=== PATIENT | female | born 2000 | race Caucasian/White ===

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

== ENCOUNTER → 2022-08-13 | Outpatient (REF) | payer OTHER ==
[2022-08-13 17:43] LABS: RHEUMATOID FACTOR QUANT < 3.5 IU/ML (<14)
[2022-08-13 17:46] LABS: FOLATE 16.1 NG/ML (>5.4); VITAMIN B12 LEVEL 193 PG/ML (211-911)
== END ==
LOC: M LAB REF 16:06
PROVIDERS: ATTEND Registered Nurse
DX: R25.1 Tremor, unspecified (principal); E51.9 Thiamine deficiency, unspecified; D51.9 Vitamin B12 deficiency anemia, unspecified; E61.0 Copper deficiency

== ENCOUNTER → 2022-11-19 | Outpatient (REF) | payer OTHER ==
[2022-11-19 14:23] LABS: FOLATE 12.3 NG/ML (>5.4)
[2022-11-19 14:25] LABS: RHEUMATOID FACTOR QUANT < 3.5 IU/ML (<14); VITAMIN B12 LEVEL 690 PG/ML (211-911)
[2022-11-24 15:09] LABS: ANTINUCLEAR ANTIBODIES DIRECT Negative (Negative); CERULOPLASMIN 33.3 mg/dL (19.0-39.0); COPPER PLASMA 198 ug/dL (80-158); VITAMIN B1 LEVEL WHOLE BLOOD 139.9 nmol/L (66.5-200.0); VITAMIN B6,PYRIDOXAL PHOSPHATE 124.1 ug/L (3.4-65.2); VITAMIN E(ALPHA TOCOPHEROL) 13.2 mg/L (5.9-19.4); VITAMIN E(GAMMA TOCOPHEROL) 1.4 mg/L (0.7-4.9)
== END ==
LOC: M LAB REF 12:12
PROVIDERS: ATTEND Internal Medicine
DX: E61.0 Copper deficiency (principal); E53.8 Deficiency of other specified B group vitamins

== ENCOUNTER → 2023-07-06 | Outpatient (CLI) | payer OTHER ==
[2023-07-06 12:16] LABS: FERRITIN 29.5 NG/ML (7.3-270.7); THYROID STIMULATING HORMONE 4.596 uIU/ML (0.48-4.17)
== END ==
LOC: M WUC 08:07
PROVIDERS: ATTEND Internal Medicine
DX: E53.8 Deficiency of other specified B group vitamins (principal); E03.9 Hypothyroidism, unspecified; D50.9 Iron deficiency anemia, unspecified

== ENCOUNTER → 2023-07-16 | Outpatient (CLI) | payer OTHER ==
[2023-07-16 16:04] LABS: FREE T4 0.84 NG/DL (0.83-1.43)
== END ==
LOC: M LAB 15:00
PROVIDERS: ATTEND Internal Medicine
DX: E03.9 Hypothyroidism, unspecified (principal)

== ENCOUNTER → 2024-01-06 | Outpatient (REF) | payer OTHER | LOC: M LAB REF 12:47 | PROVIDERS: ATTEND Internal Medicine | DX: E66.09 Other obesity due to excess calories (principal); F41.9 Anxiety disorder, unspecified ==

== ENCOUNTER → 2024-01-17 | Outpatient (REF) | payer OTHER | LOC: M LAB REF 13:30 | PROVIDERS: ATTEND Internal Medicine | DX: E66.9 Obesity, unspecified (principal); F41.9 Anxiety disorder, unspecified ==

== ENCOUNTER → 2024-08-13 | Outpatient (CLI) | payer OTHER | LOC: M SLEEP 20:00 | PROVIDERS: ATTEND Physician Assistant | DX: R40.0 Somnolence (principal); R06.83 Snoring ==

== ENCOUNTER → 2024-08-22 | Outpatient (REF) | payer OTHER | LOC: M LAB REF 16:25 | PROVIDERS: ATTEND Internal Medicine | DX: F34.1 Dysthymic disorder (principal); R73.01 Impaired fasting glucose; E66.9 Obesity, unspecified ==